=== PATIENT | female | born 1935 | race Caucasian/White ===

== ENCOUNTER 2017-11-11 09:42 | Outpatient (CLI) | payer MEDICARE ==
[2017-11-11 10:12] LABS: #Lymphocytes 1.8 thou/uL (1.20-3.40); #Monocytes 0.4 thou/uL (0.11-0.59); #Neutrophils 4.3 thou/uL (1.40-6.50); %Basophils 0.7 % (0.0-1.0); %Eosinophils 0.2 % (0.0-10.0); %Lymphocytes 27.8 % (21.0-51.0); %Monocytes 5.9 % (0.0-10.0); %Neutrophils 65.4 % (42.0-75.0); Hemoglobin 14.6 g/dL (12.0-16.0); Mean Corpuscular HGB CONC 31.2 g/dL (32.0-36.0); Mean Corpuscular Hemoglobin 28.9 pg (27.0-31.0); Mean Corpuscular Volume 92.6 fL (78.0-98.0); Mean Platelet Volume 7.7 fL (7.4-10.4); Platelet Count 230 thou/uL (130-400); RBC Distribution Width 13.5 % (11.5-14.5); Red Blood Cell (RBC) Count 5.04 mill/uL (4.20-5.40); White Blood Cell (WBC) Count 6.5 thou/uL (4.8-10.8)
[2017-11-11 10:24] LABS: Anion Gap 11 mmol/L (10-20); BUN (Urea Nitrogen) 17 mg/dL (9.8-20.1); Calc. Creatinine Clearance 0 mL/min (70-130); Carbon Dioxide 28 mmol/L (23-31); Chloride 105 mmol/L (98-107); Estimated GFR-MDRD 84; Glucose 99 mg/dL (83-110); Sodium 140 mmol/L (136-145)
--- NOTE | 2017-11-11 17:15 | EKG ---
Test Reason : Blood Pressure : / mmHG Vent. Rate : 069 BPM Atrial Rate : 069 BPM P-R Int : 152 ms QRS Dur : 086 ms QT Int : 422 ms P-R-T Axes : 067 -18 066 degrees QTc Int : 452 ms Normal sinus rhythm Nonspecific T wave abnormality Poor anterior R wave progression Abnormal ECG No previous ECGs available Confirmed by DR. Bernice ROYAL ([id number]) on 11/11/2017 5:14:59 PM Referred By: [email or web address] Confirmed By:DR. Berniec ROYAL
== END 2017-11-11 09:43 | disposition home or self-care (01) ==
LOC: LABBT 09:42
PROVIDERS: ATTEND Specialist
DX: Z01.812 Encounter for preprocedural laboratory examination (principal); K40.20 Bilateral inguinal hernia, without obstruction or gangrene, not specified as recurrent
CPT/HCPCS: 80048; 85025; 93005; 93010

== ENCOUNTER 2017-11-16 06:51 | Day surgery (SDC) | payer MEDICARE ==
--- NOTE | 2017-11-10 13:56 | HP ---
DATE OF : 1935 HISTORY OF PRESENT ILLNESS: Laura Sidhu is an 81-year-old female with bilateral inguinal hernias pres ent for the last 6-8 weeks and bothersome to her. She desires repair. Plan is for a robotic bilater al inguinal hernia repairs with mesh. The patient has a history of 2 coronary stents placed in 1998 and 2007. She has never had a myocardial infarction. She reports having a normal cardiac stress susan t in 2014. She denies cardiac symptomatology. She saw Dr. Riley recently with echocardiogram and is planning a cardiac stress test 10/25/2017 with follow up with Dr. Riley 10/27/2017 and then fo llow up with me directly after that to schedule robotic mesh repair of bilateral inguinal hernias. S he will hold her Plavix a week prior to surgery. She understands risks and benefits of infection, bl eeding, reoperation, chronic pain, and consents. ALLERGIES: DEMEROL causes racing heart and nausea. CODEINE causes her to be hot and feel closed in. TOBACCO: None for 60 years. ALCOHOL: None. MEDICATIONS: Atorvastatin 40 mg a day, Plavix 75 mg a day, amlodipine 5 mg twice a day. PAST SURGICAL HISTORY: Laparoscopic cholecystectomy in 1994, hysterectomy, bilateral salpingo-oophor ectomy 1971. Midline infraumbilical incision. REVIEW OF SYSTEMS: Noncontributory. PHYSICAL EXAMINATION: VITAL SIGNS: Weight 123 pounds, 5 foot 3, 21 BMI, 150/76, 68, 96.8. GENERAL: The patient is in no acute distress. Neurologically intact. No lymphadenopathy in neck, a xilla, groins. LUNGS: Clear to auscultation. No wheezing. CARDIAC: Regular rate and rhythm without murmur or gallop. ABDOMEN: Soft, nontender. Infraumbilical midline scar. No hernias. Bilateral groin standing revea l inguinal hernias, probably femoral left and indirect or direct inguinal hernia right. These are re ducible. EXTREMITIES: Unremarkable. No ankle edema. ASSESSMENT AND PLAN: 1. Bilateral inguinal hernias, possibly femoral left. We will plan robotic mesh repair of bilateral inguinal hernias. She understands the risks and benefits of surgery including infection, bleeding, reoperation, recurrence, and consents. We will await cardiac clearance. 2. History of coronary stents, no history of myocardial infarction. Echocardiogram recently. Plann ed cardiac stress test with Dr. Riley 10/25/2017 and follow up with him 10/27/2017 and she will fo llow up with me directly after that to schedule her surgery.
--- NOTE | 2017-11-10 13:56 | ADD-HP ---
ADDENDUM: HISTORY OF PRESENT ILLNESS: Ms. Laura Sidhu has obtained cardiac clearance from Dr. Riley. Cardia c stress test was unremarkable without signs of ischemia and myocardial perfusion was normal. Normal wall motion, LV ejection fraction 81%. Cleared for surgery without further cardiac intervention. P barbara robotic repair of bilateral inguinal hernias. PHYSICAL EXAMINATION: LUNGS: Clear to auscultation. CARDIAC: Regular rate and rhythm without murmur or gallop. ABDOMEN: Soft, nontender. Bilateral inguinal hernias present. No change in physical exam or history otherwise.
[2017-11-11 10:10] VITALS: BMI 21.6
[2017-11-16] MEDS ORDERED: CEFAZOLIN/Water 2 GM/20 ML SYRINGE ONE (07:24)
[2017-11-16] MEDS ORDERED: Ketorolac Tromethamine 30 MG/ML VIAL ONE (07:24)
[2017-11-16] MEDS ORDERED: Bupivacaine HCl 0.5%/Epinephrine 1:200,000/PF 30 ml Vial ONE (08:34)
[2017-11-16] MEDS ORDERED: Fentanyl 100 MCG/2 ML VIAL ONE ×2 (10:01)
[2017-11-16] MEDS ORDERED: Promethazine HCl 25 MG/ML VIAL ONE (13:30)
[2017-11-16] MEDS ORDERED: Glycopyrrolate 0.2 MG/ML 5 ML SYRINGE ONE (13:37)
[2017-11-16] MEDS ORDERED: PROPOFOL 200 MG/20 ML VIAL ONE (13:37)
[2017-11-16] MEDS ORDERED: Lidocaine 1% PF 5 ML VIAL ONE (13:37)
[2017-11-16] MEDS ORDERED: Ondansetron HCl/PF 4 MG/2 ML Vial ONE (13:37)
[2017-11-16] MEDS ORDERED: Dexamethasone 20 MG/5 ML VIAL ONE (13:37)
--- NOTE | 2017-11-16 13:44 | OP ---
DATE OF PROCEDURE: 11/16/2017 PREOPERATIVE DIAGNOSIS: Bilateral inguinal hernias. POSTOPERATIVE DIAGNOSIS: Right indirect inguinal hernias, left pantaloon inguinal hernia. PROCEDURE: 3DMax medium mesh repair bilateral inguinal hernias, robotic, endoscopic. SURGEON: Dr. Antonio Rizvi ANESTHESIA: General. Local 0.5% Marcaine with epinephrine 30 mL. PROCEDURE IN DETAIL: The patient was taken to the operating room where under general anesthesia, the patient was placed in Trendelenburg, slight flexed position, abdomen was prepared with ChloraPrep, d raped in routine fashion. Local anesthetic infiltrated into the skin and subcutaneous tissue about e ach port site. Supraumbilical midline incision made and pneumoperitoneum to 15 obtained with the Felicia ess needle, placing an 11 port and video laparoscope inserted. Bilateral far lateral subcostal incis ion made and 8 mm ports placed. Robot was docked and after proper positioning, robotic inguinal renée ia repair undertaken by dropping the peritoneum from the anterior superior iliac spine on the right a nd left sides towards the midline and creating a flap bilaterally, medially with dissection towards t he pubis symphysis. Dissection out laterally, avoiding the epigastric vessels as lateral dissections adjacent to the peritoneum freed this flap. There was a pantaloon hernia on the left and indirect h ernia on the right and the hernia sac dissected free and area cleared down to the iliac vessels. Med ium 3DMax placed on each side and properly oriented and approximated to the pubis with interrupted an tures of 3-0 Vicryl on both sides and then to the anterior abdominal wall just lateral to the epigast tashia vessels on both sides. Once this was secure the peritoneum was closed laterally with continuous suture of 3-0 Stratafix. Good peritoneal closure obtained. Good hernia repair appreciated endoscopi ned. The patient tolerated the procedure well.
[2017-11-16] MEDS ORDERED: traMADol HCl 50 MG TAB ONE (14:49)
== END 2017-11-16 15:26 | disposition home or self-care (01) ==
LOC: SDC 06:51
PROVIDERS: ATTEND Specialist
PROC: 0YUA4JZ Supplement Bilateral Inguinal Region with Synthetic Substitute, Percutaneous Endoscopic Approach (ICD-10-PCS; principal; 2017-11-16)
DX: K40.20 Bilateral inguinal hernia, without obstruction or gangrene, not specified as recurrent (principal); I25.10 Atherosclerotic heart disease of native coronary artery without angina pectoris; I10 Essential (primary) hypertension; M81.0 Age-related osteoporosis without current pathological fracture; M19.90 Unspecified osteoarthritis, unspecified site; E78.2 Mixed hyperlipidemia; Z88.5 Allergy status to narcotic agent; Z86.73 Personal history of transient ischemic attack (TIA), and cerebral infarction without residual deficits; Z95.5 Presence of coronary angioplasty implant and graft; Z79.899 Other long term (current) drug therapy
CPT/HCPCS: 49650; C1781; 96374; J0131; J0670; J1100; J1885; J2001; J2405; J2550; J2704; J3010